=== PATIENT | male | born 1990 | race Caucasian/White ===

== ENCOUNTER 2023-10-18 10:33 | Emergency (ER) | payer MEDICAID, SELFPAY ==
[2023-10-18] VITALS (7 sets, daily range): BP systolic 138–187; BP diastolic 91–117; PULSE 83–127; RESP 16–22; TEMP 35.7–36.8; O2SAT 97–99; BMI 33.0
--- NOTE | 2023-10-18 10:47 | ECG_ITS ---
Test Reason : TACHY Blood Pressure : / mmHG Vent. Rate : 094 BPM Atrial Rate : 094 BPM P-R Int : 146 ms QRS Dur : 084 ms QT Int : 376 ms P-R-T Axes : 044 066 026 degrees QTc Int : 470 ms Normal sinus rhythm Normal ECG When compared with ECG of 14-MAR-2011 14:42, QT has lengthened Referred By: Angie Guerra Electronically Signed By:BRENDA WARE
[2023-10-18] MEDS: Ondansetron ODT 4 MG TAB.RAPDIS TRANSLINGU ×2 (11:00→14:57)
--- NOTE | 2023-10-18 11:01 | ED_ITS ---
HPI - General Adult General Chief complaint: ETOH/Substance Use Stated complaint: withdrawls Time Seen by Provider: 10/18/23 10:45 Source: patient Mode of arrival: ambulatory History of Present Illness HPI narrative: 33-year-old male who reports using 2 bundles fentanyl a day, he snorts the medications, he has been in a detox program proximally 1-1/2 years ago, states that he last used 2 days ago. He denies any alcohol use but does smoke cigarettes and occasionally cannabis. Patient states that he feels like he may be withdrawing and has complaints of nausea as well as feelings of hot/cold, dry heaving last night and having shakes . He has not interested in an inpatient detox system but is open to further discussing a program through [facility] for [place]. Related Data Allergies Allergy/AdvReac Type Severity Reaction Status Date / Time bupropion [From WELLBUTRIN] Allergy Unknown anxiety Unverified 06/15/20 16:08 pollen Allergy Unknown Uncoded 02/28/14 00:00 Review of Systems 2 Review of Systems: Pertinent positives and negatives as stated in HPI PMFSH Past Medical History Source: nursing notes reviewed Onset Date is defined in the Problem List Problems that require an onset date and time if occurred within 24 hrs of arrival to the ED Aortic Dissection and Rupture; Neurologic impairment; Cardiopulmonary Arrest; Endotracheal Intubation; Insertion or Replacement of Mechanical Circulatory Assist Device Social History Social History Use of substances other than those prescribed or required for medical reasons: Yes Substance Use Type: Heroin Substance Use Frequency: Recent Binge Advance Directives: No Advance Directives Information Provided: No Physical Exam ED Vital Signs: Vital Signs - 24 hr 10/18/23 10:37 10/18/23 10:51 10/18/23 12:00 Temperature 96.3 F L Pulse Rate 127 H 114 H 93 Respiratory Rate 17 22 H 16 Blood Pressure 169/117 H 187/101 H 157/91 H Pulse Oximetry 97 99 98 Oxygen Delivery Method Room Air Room Air 10/18/23 14:55 10/18/23 15:43 Temperature 98.3 F Pulse Rate 89 83 Respiratory Rate 16 16 Blood Pressure 145/99 H 138/103 H Pulse Oximetry 97 97 Oxygen Delivery Method Room Air Room Air BMI result Body Mass Index 33.0 VITAL SIGNS: Reviewed. GENERAL: Well developed, well nourished, in no acute distress. HEAD: Normocephalic/atraumatic EYES: PERRLA, EOMI EARS: Ext canals without abnormality NOSE: Nares patent bilateral OROPHARYNX: no oral lesions noted, posterior pharynx clear NECK: Supple, no adenopathy LUNGS: Normal breath sounds. No adventitious sounds or accessory muscle use. SpO2<97> CARDIOVASCULAR: Regular rate and rhythm without noted murmurs ABDOMEN: Soft, non-tender, non-distended with bowel sounds. MUSCULOSKELETAL: No tenderness, deformities, or effusions noted on gross inspection. EXTREMITIES: No cyanosis, clubbing or edema. SKIN: Inspection of the skin reveals no rashes NEUROLOGIC: Alert and oriented x 4. Strength and sensation to light touch were grossly intact x 4. COWS: 14 Medications Administered Discontinued Medications Generic Name Dose Route Start Last Admin Trade Name Freq PRN Reason Stop Dose Admin Buprenorphine/Naloxone 2 film 10/18/23 13:40 10/18/23 13:55 Buprenorphine/Naloxone 8/2 Mg Film SUBLINGUAL 10/18/23 13:41 2 film ONCE ONE Administration Buprenorphine/Naloxone 1 film 10/18/23 14:46 10/18/23 14:57 Buprenorphine/Naloxone 8/2 Mg Film SUBLINGUAL 10/18/23 14:47 1 film ONCE ONE Administration Clonidine HCl 0.1 mg 10/18/23 11:08 10/18/23 11:20 Clonidine Hcl 0.1 Mg Tablet PO 10/18/23 11:09 0.1 mg ONCE ONE Administration Protocol Hydroxyzine HCl 25 mg 10/18/23 14:47 10/18/23 14:57 Hydroxyzine Hcl 25 Mg Tablet PO 10/18/23 14:48 25 mg ONCE ONE Administration Ondansetron HCl 4 mg 10/18/23 10:55 10/18/23 11:00 Ondansetron Odt 4 Mg Tab.Rapdis TRANSLINGU 10/18/23 10:56 4 mg ONCE ONE Administration Ondansetron HCl 4 mg 10/18/23 14:46 10/18/23 14:57 Ondansetron Odt 4 Mg Tab.Rapdis TRANSLINGU 10/18/23 14:47 4 mg ONCE ONE Administration Tizanidine HCl 4 mg 10/18/23 11:08 10/18/23 11:21 Tizanidine Hcl 4 Mg Tablet PO 10/18/23 11:09 4 mg ONCE ONE Administration Medical Decision Making Medical Decision Making [facility] Narrative: 33-year-old male with history and clinical presentation, DDX: Opiate withdrawal, will evaluate fully prior to starting any medications, VELASQUEZ eval I reviewed all investigations and hematologic indices are negative for leukocytosis and there is no anemia or thrombocytopenia. Chemistry indices do not demonstrate an GONZALO neither is there any noted electrolyte or liver enzyme derangements. Ethanol is undetectable however UDS is positive for fentanyl/cocaine/marijuana. Somewhat concerning for proceeding with Suboxone. Patient was provided with clonidine, Zanaflex, Zofran. 1341: VELASQUEZ evaluation in coordination with Valentina Bruno is for 16mg suboxone at this time and then re-eval and likely discharge with script and follow up at the comprehensive program here at [facility]. 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 Patient feeling better on re-evaluation after the last dose Suboxone and is otherwise discharged and understands that he will present to the [facility] and a prescription for remaining Suboxone has been sent to the pharmacy. Differential Diagnosis Differential Diagnoses: The differential diagnosis associated with the presentation includes Please see the discussion above Admission/Observation Consideration of admission/observation: Escalation of care including admission/observation considered Please see the discussion above Consult Healthcare Provider Management of the patient was discussed with: Elevated Guard Please see the discussion above Lab Data MDM Lab Attestation statement: I reviewed the patient's lab results. Please see the discussion above 10/18/23 11:03 10/18/23 11:03 Labs: Lab Results 10/18/23 10/18/23 Range/Units 11:03 12:10 WBC 10.3 (4.8-10.8) X10*3/uL RBC 5.56 (4.60-5.80) X10*6/uL Hgb 16.4 (14.0-18.0) g/dl Hct 48.5 (42.0-52.0) % MCV 87.2 (80.0-98.0) fL MCH 29.5 (27.0-33.0) pg MCHC 33.8 (31.0-36.0) g/dl RDW 12.9 (11.0-16.0) % Plt Count 325 (160-400) X10*3/uL MPV 8.8 L (9.4-12.4) fL Immature Gran % (Auto) 0.4 (0.0-0.4) % Neut % (Auto) 80.5 H (45-73) % Lymph % (Auto) 12.8 L (20-40) % [place] % (Auto) 5.4 (2-11) % Eos % (Auto) 0.3 (0-4) % Baso % (Auto) 0.6 (0-2) % Lymph # (Auto) 1.3 (1.2-4.9) X10*3/uL [place] # (Auto) 0.6 (0.1-1.2) X10*3/uL Eos # (Auto) 0.0 (0.0-0.4) X10*3/uL Baso # (Auto) 0.1 (0.0-0.2) X10*3/uL Abs Immat Gran (auto) 0.04 H (0.00-0.03) X10*3/uL Absolute Neuts (auto) 8.3 (2.0-8.3) x10*3/uL Absolute Nucleated RBC 0.000 (0.0-0.012) X10*3/uL Nucleated RBC % (auto) 0.0 (0.0-0.2) /100WBC Sodium 140 (135-145) mmol/L Potassium 4.1 (3.3-5.1) mmol/L Chloride 104 (96-108) mmol/L Carbon Dioxide 25 (22-29) mmol/L Anion Gap 15 (12-20) BUN 6 L (9-16) mg/dL Creatinine 0.97 (0.5-1.4) mg/dL Estim Creat Clear Calc 124.7 Estimated GFR > 60 Random Glucose 128 H (60-115) mg/dL Calcium 9.9 (8.4-10.2) mg/dL Total Bilirubin 0.4 (0.0-1.0) mg/dL AST 14 (5-37) U/L ALT 10 (0-40) U/L Alkaline Phosphatase 106 (39-117) U/L Total Protein 8.2 H (6.5-8.0) g/dL Albumin 4.8 (3.5-5.0) g/dL Urine Opiates Screen Not Detected (Not Detect) Urine Fentanyl Screen POSITIVE H (Not Detect) Ur Barbiturates Screen Not Detected (Not Detect) Ur Phencyclidine Scrn Not Detected (Not Detect) Ur Amphetamines Screen Not Detected (Not Detect) U Benzodiazepines Scrn Not Detected (Not Detect) Urine Cocaine Screen POSITIVE H (Not Detect) U Marijuana (THC) Screen POSITIVE H (Not Detect) Ethyl Alcohol < 10 mg/dL Independent Interpretation I performed an independent interpretation of an: EKG Interpretation: Normal sinus rhythm, HR-94, no STEMI, OR/QRS/QTC is within normal limits. Chronic Conditions Patient?s care impacted by: Other Polysubstance use disorder Social Determinants Patient?s care significantly limited by Social Determinants of Health including: Alcoholism and drug addiction in family Critical Care Time Critical Care Time Critical Care Time: Yes Total Critical Care Time: 60 Attestation: I personally attest to this time spent taking care of the patient. Discharge Plan Discharge Clinical Impression: Polysubstance use disorder Patient Disposition: Home, Self-Care Instructions: Polysubstance Abuse (ED) Additional Instructions: 1. You understand that you will be presenting to the [facility]. 2. You have been provided with a prescription which has been sent to your pharmacy for Suboxone. Return to the ER for any worsening symptoms. Referrals: Valentina Bruno CNP [Nurse Practitioner] -
[2023-10-18 11:06] LABS: MANUAL DIFF FLAG NO
[2023-10-18 11:11] LABS: Basophils Absolute Auto 0.1 X10*3/uL (0.0-0.2); Basophils Percent Auto 0.6 % (0-2); Eosinophils Percent Auto 0.3 % (0-4); Hematocrit 48.5 % (42.0-52.0); Hemoglobin 16.4 g/dl (14.0-18.0); Imm Gran Abs Auto 0.04 X10*3/uL (0.00-0.03); Imm Gran Pct Auto 0.4 % (0.0-0.4); Lymphocytes Absolute Auto 1.3 X10*3/uL (1.2-4.9); Lymphocytes Percent Auto 12.8 % (20-40); Mean Corpuscular HGB Conc 33.8 g/dl (31.0-36.0); Mean Corpuscular Hemoglobin 29.5 pg (27.0-33.0); Mean Corpuscular Volume 87.2 fL (80.0-98.0); Mean Platelet Volume 8.8 fL (9.4-12.4); Monocytes Absolute Auto 0.6 X10*3/uL (0.1-1.2); Monocytes Percent Auto 5.4 % (2-11); Neutrophils Absolute Auto 8.3 x10*3/uL (2.0-8.3); Neutrophils Percent Auto 80.5 % (45-73); Platelet Count 325 X10*3/uL (160-400); Red Blood Count 5.56 X10*6/uL (4.60-5.80); Red Cell Distribution Width 12.9 % (11.0-16.0); White Blood Count 10.3 X10*3/uL (4.8-10.8)
[2023-10-18] MEDS: cloNIDine HCL 0.1 MG TABLET PO (11:20)
[2023-10-18] MEDS: TiZANidine HCL 4 MG TABLET PO (11:21)
[2023-10-18 11:22] LABS: Alanine Aminotransferase 10 U/L (0-40); Albumin Level 4.8 g/dL (3.5-5.0); Alkaline Phosphatase 106 U/L (39-117); Anion Gap 15 (12-20); Aspartate Amino Transferase 14 U/L (5-37); Bilirubin Total 0.4 mg/dL (0.0-1.0); Blood Urea Nitrogen 6 mg/dL (9-16); Calcium 9.9 mg/dL (8.4-10.2); Carbon Dioxide 25 mmol/L (22-29); Chloride 104 mmol/L (96-108); Creatinine Clr Calc Pharmacy 124.7; Estimated Glomerular Filt Rate > 60; Ethanol < 10 mg/dL; Glucose Random 128 mg/dL (60-115); Potassium 4.1 mmol/L (3.3-5.1); Sodium 140 mmol/L (135-145); Total Protein 8.2 g/dL (6.5-8.0)
[2023-10-18 12:23] LABS: Amphetamine Screen Urine Not Detected (Not Detect); Barbiturates, Urine Not Detected (Not Detect); Benzodiazepines Screen Urine Not Detected (Not Detect); Cannabinoid Screen Urine POSITIVE (Not Detect); Cocaine Screen Urine POSITIVE (Not Detect); Fentanyl, urine POSITIVE (Not Detect); Opiate Screen Urine Not Detected (Not Detect); Phencyclidine Screen Urine Not Detected (Not Detect)
[2023-10-18] MEDS: Buprenorphine/Naloxone 8/2 mg FILM 2 FILM SUBLINGUAL (13:55)
--- NOTE | 2023-10-18 14:45 | PC.NURSE ---
patient medicated per mar with suboxone, at approx 1430 patient had episode of vomiting. states he feels worse and has increasing nausea
[2023-10-18] MEDS: Buprenorphine/Naloxone 8/2 mg FILM 1 FILM SUBLINGUAL (14:57)
[2023-10-18] MEDS: hydrOXYzine HCL 25 MG TABLET PO (14:57)
--- NOTE | 2023-10-18 15:32 | MHC.RECOVRN ---
Met with pt in ED22 after pt presented to the ED with opioid withdrawal. At 1330, pt laying in bed, restless, stomach flip flopping , dilated pupils, rhinorrhea, tearing, feeling hot/cold, denies loose stool. Pt reports ususally using 1-2 bundles heroin/fentanyl, IN, daily. Last use was 10/16, 3 bags. Pt reports hx Percocet use which lead to heroin around 2019. Pt reports hx Suboxone, had been in recovery at one point for 1 year. Discussed MOUD options, pt interested in Suboxone initiation. Educated pt on precipitated withdrawal. Pt denies questions or concerns, agreeable to Suboxone induction. Pt received 16 mg Suboxone at 1355. At approx 1430, pt began exhibiting increased withdrawal symptoms including vomiting and loose stool. Pt received additional 8 mg Suboxone at 1457. Met with pt at 1520, pt reports feeling better. Pt reports stomach cramps are subsiding, diaphoresis is lessening. Plan for pt to present to [facility] as walk in on Friday. Suboxone rx to be sent by Valentina Bruno APRN. Pt denies questions or concerns at this time. Pt was provided with written resources as well as t/w contact information if needed. Discussed with ED provider, RN, as well as Valentina Bruno APRN.
== END 2023-10-18 16:10 | disposition home or self-care (01) ==
PROVIDERS: Emergency Provider Student in an Organized Health Care Education/Training Program
DX: F19.10 Other psychoactive substance abuse, uncomplicated (principal); R11.2 Nausea with vomiting, unspecified; F17.210 Nicotine dependence, cigarettes, uncomplicated; F41.9 Anxiety disorder, unspecified; Z79.899 Other long term (current) drug therapy
CPT/HCPCS: 36415; 80053; 80307; 85025; 93005; 99285

== ENCOUNTER → 2023-10-18 10:47 | Outpatient (BNV) | payer MEDICAID, SELFPAY | PROVIDERS: Emergency Provider Student in an Organized Health Care Education/Training Program; Visit Provider Internal Medicine | DX: R00.0 Tachycardia, unspecified (principal); I45.81 Long QT syndrome | CPT/HCPCS: 93010 ==

== ENCOUNTER 2023-10-18 19:33 | Emergency (ER) | payer MEDICAID, SELFPAY ==
--- NOTE | ~2023-10-18 | XR_ITS ---
EXAMINATION: XR CHEST CLINICAL INFORMATION: Elevated white blood cell count, rule out infection COMPARISON: None available. TECHNIQUE: Frontal view of the chest was obtained. FINDINGS: No significant abnormality is noted involving the heart, lungs, mediastinum, bony thorax or soft tissues. XR/XR chest 1V IMPRESSION: Unremarkable examination.
[2023-10-18 19:37] VITALS: BP 158/114; PULSE 97; RESP 16; TEMP 36.9; O2SAT 97; BMI 32.1
--- NOTE | 2023-10-18 20:18 | ED.GENADULT ---
HPI - General Adult General Chief complaint: General Medical Stated complaint: withdrawals Time Seen by Provider: 10/18/23 20:05 Source: patient Mode of arrival: ambulatory Limitations: no limitations History of Present Illness HPI narrative: 33-year-old male with a past medical history of polysubstance abuse, using 2 bundles fentanyl daily, presents emergency department with concerns for fentanyl withdrawal. He reports he last used 2 days ago and states that he was evaluated earlier today in this emergency department and given Suboxone for management of withdrawal symptoms. He states his symptoms have since worsened with increased nausea, generalized body aches, chills, headache, and feeling of ?shakes?. He states that he snorts the drug and denies any history of IV drug use. He reports he and he smokes cigarettes and occasionally marijuana but denies any EtOH use. Here in the emergency department he denies any shortness of breath, chest pain, fevers, abdominal pain, vision changes, dizziness, or change in gait in range of motion. Patient reports that he is interested in discussing detox options at this time Pertinent positives and negatives discussed in HPI Related Data Previous Rx's Medication Instructions Recorded buprenorphine 8 mg-naloxone 2 mg 1 film sublingual BID #4 ea 10/18/23 sublingual film (Suboxone) ondansetron 4 mg disintegrating 4 mg PO Q6H PRN nausea and 10/18/23 tablet vomiting #20 tabs tizanidine 2 mg capsule 2 mg PO TID PRN muscle spasticity 10/18/23 #10 caps Allergies Allergy/AdvReac Type Severity Reaction Status Date / Time bupropion [From WELLBUTRIN] Allergy Unknown anxiety Unverified 06/15/20 16:08 pollen Allergy Unknown Uncoded 02/28/14 00:00 Review of Systems Review of Systems: Yes all other systems are reviewed and are negative [facility] Social History Social History Smoked in Last 30 Days: Yes Use of substances other than those prescribed or required for medical reasons: Yes Substance Use Type: Opiates Substance Use Frequency: Chronic Longstanding Last Used Substance: Days (ago) Any prior treatment program specific to substance use: Yes Advance Directives: No Advance Directives Information Provided: No Physical Exam ED Vital Signs: Vital Signs - 24 hr 10/18/23 19:37 10/18/23 20:51 10/18/23 22:18 Temperature 98.5 F 98.5 F Pulse Rate 97 91 65 Respiratory Rate 16 14 14 Blood Pressure 158/114 H 152/102 H 150/93 H Pulse Oximetry 97 97 97 Oxygen Delivery Method Room Air Room Air Room Air BMI result Body Mass Index 32.1 Nursing notes and vital signs reviewed. GENERAL APPEARANCE: A&0 x 4, generally well appearing, no acute distress HENMT: Normal to inspection, atraumatic, face symmetrical. Normal external ears, nose, and oropharynx clear. EYE: PERRLA, EOM intact, structures appear normal NECK: Supple without lymphadenopathy. No stiffness or restricted ROM. CHEST: Normal to inspection HEART: Normal rate and regular rhythm, normal S1/S2, no M/R/G LUNGS: LS CTA, moving air well. Able to speak in complete sentences. No crackles, wheezes, or rhonchi auscultated ABDOMEN: Soft, nontender, nondistended. Normal bowel sounds noted BACK: No CVAT, no obvious deformity EXTREMITIES: Moving all extremities without difficulty. No cyanosis, clubbing, or edema. Normal capillary refill. NEUROLOGICAL: Alert and oriented, moving all 4 extremities with equal strength. CN not formally tested but appearing grossly intact. Observed to ambulate with normal gait. Cognition normal SKIN: Warm and dry without any lesions, rash, or visible sores PSYCH: Cooperative, normal affect, normal thought process COWS 11 @2019 Course Reevaluation(s) Reevaluation #1: Pt actively vomiting. Reglan, Haldol, and IVF bolus ordered. UA and CXR ordered to assess for cause of elevated WBCs Time: 21:40 Medications Administered Discontinued Medications Generic Name Dose Route Start Last Admin Trade Name Braedenq PRN Reason Stop Dose Admin Clonidine HCl 0.1 mg 10/18/23 20:31 10/18/23 21:01 Clonidine Hcl 0.1 Mg Tablet PO 10/18/23 20:32 0.1 mg ONCE ONE Administration Protocol Haloperidol Lactate 1 mg 10/18/23 21:42 10/18/23 22:12 Haloperidol Lactate 5 Mg/Ml Vial IVPUSH 10/18/23 21:43 1 mg ONCE ONE Administration Sodium Chloride 1,000 mls @ 999 mls/hr 10/18/23 21:45 10/18/23 23:46 Ns IV 10/18/23 22:45 Infused .Q1H1M [place] Infusion Metoclopramide HCl 10 mg 10/18/23 21:42 10/18/23 22:12 Metoclopramide Hcl 10 Mg/2 Ml Vial IVPUSH 10/18/23 21:43 10 mg ONCE ONE Administration Ondansetron HCl 8 mg 10/18/23 20:20 10/18/23 21:01 Ondansetron Odt 8 Mg Tab.Rapdis TRANSLINGU 10/18/23 20:21 8 mg ONCE ONE Administration Tizanidine HCl 4 mg 10/18/23 20:31 10/18/23 21:01 Tizanidine Hcl 4 Mg Tablet PO 10/18/23 20:32 4 mg ONCE ONE Administration Medical Decision Making Medical Decision Making MDM Narrative: Old records reviewed and patient assessed in the emergency department with no acute distress or evidence of toxicity present. Zofran, Reglan, Haldol, tizanidine, and clonidine ordered for management of acute withdrawal symptoms with good relief per patient. Patient monitored here in this emergency department with vital signs stable. Patient educated to follow-up with [facility] with contact information provided. Patient educated to continue previously prescribed Suboxone for further cessation fentanyl. Tizanidine and Zofran since patient's preferred pharmacy for further management of withdrawal symptoms. Patient is safe for discharge at this time with plan for [id number] Tylenol and/or NSAID such as ibuprofen or naproxen for fever/discomfort with dosing as per packaging. HPI, PE, diagnostics, and plan discussed with patient and family with no unanswered questions at this time. Strict return precautions given to return to the emergency department with new, worsening, or concerning emergent symptoms. Recommended to follow-up with there primary care provider in 24-48 hours for further treatment and management. Differential Diagnosis Differential Diagnoses: The differential diagnosis associated with the presentation includes But not limited to opioid withdrawal, influenza, sepsis, ETOH withdrawal, ACS, pneumonia, CVA Lab Data 10/18/23 21:00 10/18/23 21:00 Labs: Lab Results 10/18/23 10/18/23 Range/Units 21:00 21:07 WBC 15.0 H (4.8-10.8) X10*3/uL RBC 5.58 (4.60-5.80) X10*6/uL Hgb 16.6 (14.0-18.0) g/dl Hct 47.4 (42.0-52.0) % MCV 84.9 (80.0-98.0) fL MCH 29.7 (27.0-33.0) pg MCHC 35.0 (31.0-36.0) g/dl RDW 12.9 (11.0-16.0) % Plt Count 358 (160-400) X10*3/uL MPV 8.8 L (9.4-12.4) fL Immature Gran % (Auto) 0.4 (0.0-0.4) % Neut % (Auto) 88.4 H (45-73) % Lymph % (Auto) 7.5 L (20-40) % [place] % (Auto) 3.1 (2-11) % Eos % (Auto) 0.3 (0-4) % Baso % (Auto) 0.3 (0-2) % Lymph # (Auto) 1.1 L (1.2-4.9) X10*3/uL [place] # (Auto) 0.5 (0.1-1.2) X10*3/uL Eos # (Auto) 0.0 (0.0-0.4) X10*3/uL Baso # (Auto) 0.1 (0.0-0.2) X10*3/uL Abs Immat Gran (auto) 0.06 H (0.00-0.03) X10*3/uL Absolute Neuts (auto) 13.3 H (2.0-8.3) x10*3/uL Absolute Nucleated RBC 0.000 (0.0-0.012) X10*3/uL Nucleated RBC % (auto) 0.0 (0.0-0.2) /100WBC Sodium 139 (135-145) mmol/L Potassium 4.3 (3.3-5.1) mmol/L Chloride 103 (96-108) mmol/L Carbon Dioxide 24 (22-29) mmol/L Anion Gap 16 (12-20) BUN 8 L (9-16) mg/dL Creatinine 0.98 (0.5-1.4) mg/dL Estim Creat Clear Calc 121.8 Estimated GFR > 60 Random Glucose 133 H (60-115) mg/dL Calcium 10.4 H (8.4-10.2) mg/dL Total Bilirubin 0.6 (0.0-1.0) mg/dL AST 14 (5-37) U/L ALT 10 (0-40) U/L Alkaline Phosphatase 107 (39-117) U/L Total Protein 8.1 H (6.5-8.0) g/dL Albumin 4.9 (3.5-5.0) g/dL Urine Color Dark Yellow Urine Appearance Cloudy Urine pH 6.0 (5.0-9.0) Ur Specific [place] 1.025 (1.005-1.025) Urine Protein 100 (2+) H (Neg-Trace) mg/dL Urine Glucose (UA) Negative (Negative) mg/dL Urine Ketones >=160 (Negative) mg/dL Urine Blood Negative (Negative) Urine Nitrite Negative (Negative) Ur Leukocyte Esterase Trace H (Negative) Urine RBC 0-2 (0-2) /HPF Urine WBC 0-5 (0-5) /HPF Ur Squamous Epith Cells 0-2 (0-2) /HPF Urine Bacteria None Seen (None Seen) Hyaline Casts >20 (0-2) /LPF Urine Opiates Screen Not Detected (Not Detect) Urine Fentanyl Screen POSITIVE H (Not Detect) Ur Barbiturates Screen Not Detected (Not Detect) Ur Phencyclidine Scrn Not Detected (Not Detect) Ur Amphetamines Screen Not Detected (Not Detect) U Benzodiazepines Scrn Not Detected (Not Detect) Urine Cocaine Screen POSITIVE H (Not Detect) U Marijuana (THC) Screen POSITIVE H (Not Detect) Discharge Plan Discharge Clinical Impression: Polysubstance use disorder Patient Disposition: Home, Self-Care Instructions: Polysubstance Abuse (ED) Additional Instructions: Please present to: [address], [address] [place] [address] A prescription for Suboxone was sent to your pharmacy earlier today. Please use this prescription as directed and follow up with the [facility] Prescriptions: New ondansetron 4 mg tablet,disintegrating 4 mg PO Q6H PRN (Reason: nausea and vomiting) Qty: 20 0RF tizanidine 2 mg capsule 2 mg PO TID PRN (Reason: muscle spasticity) Qty: 10 0RF No Action buprenorphine-naloxone [Suboxone] 8-2 mg film 1 film sublingual BID Qty: 4 0RF Referrals: [facility] [Provider Group] [facility]] [facility]] Valentina Bruno CNP [Nurse Practitioner] - Print Language: Bulgarian
[2023-10-18 20:51] VITALS: BP 152/102; PULSE 91; RESP 14; O2SAT 97
[2023-10-18] MEDS: Ondansetron ODT 8 MG TAB.RAPDIS TRANSLINGU (21:01)
[2023-10-18] MEDS: TiZANidine HCL 4 MG TABLET PO (21:01)
[2023-10-18] MEDS: cloNIDine HCL 0.1 MG TABLET PO (21:01)
[2023-10-18 21:07] LABS: MANUAL DIFF FLAG NO
[2023-10-18 21:08] LABS: Basophils Absolute Auto 0.1 X10*3/uL (0.0-0.2); Basophils Percent Auto 0.3 % (0-2); Eosinophils Percent Auto 0.3 % (0-4); Hematocrit 47.4 % (42.0-52.0); Hemoglobin 16.6 g/dl (14.0-18.0); Imm Gran Abs Auto 0.06 X10*3/uL (0.00-0.03); Imm Gran Pct Auto 0.4 % (0.0-0.4); Lymphocytes Absolute Auto 1.1 X10*3/uL (1.2-4.9); Lymphocytes Percent Auto 7.5 % (20-40); Mean Corpuscular Hemoglobin 29.7 pg (27.0-33.0); Mean Corpuscular Volume 84.9 fL (80.0-98.0); Mean Platelet Volume 8.8 fL (9.4-12.4); Monocytes Absolute Auto 0.5 X10*3/uL (0.1-1.2); Monocytes Percent Auto 3.1 % (2-11); Neutrophils Absolute Auto 13.3 x10*3/uL (2.0-8.3); Neutrophils Percent Auto 88.4 % (45-73); Platelet Count 358 X10*3/uL (160-400); Red Blood Count 5.58 X10*6/uL (4.60-5.80); Red Cell Distribution Width 12.9 % (11.0-16.0)
[2023-10-18 21:19] LABS: Amphetamine Screen Urine Not Detected (Not Detect); Barbiturates, Urine Not Detected (Not Detect); Benzodiazepines Screen Urine Not Detected (Not Detect); Cannabinoid Screen Urine POSITIVE (Not Detect); Cocaine Screen Urine POSITIVE (Not Detect); Fentanyl, urine POSITIVE (Not Detect); Opiate Screen Urine Not Detected (Not Detect); Phencyclidine Screen Urine Not Detected (Not Detect)
[2023-10-18 21:25] LABS: Alanine Aminotransferase 10 U/L (0-40); Albumin Level 4.9 g/dL (3.5-5.0); Alkaline Phosphatase 107 U/L (39-117); Anion Gap 16 (12-20); Aspartate Amino Transferase 14 U/L (5-37); Bilirubin Total 0.6 mg/dL (0.0-1.0); Blood Urea Nitrogen 8 mg/dL (9-16); Calcium 10.4 mg/dL (8.4-10.2); Carbon Dioxide 24 mmol/L (22-29); Chloride 103 mmol/L (96-108); Creatinine Clr Calc Pharmacy 121.8; Estimated Glomerular Filt Rate > 60; Glucose Random 133 mg/dL (60-115); Potassium 4.3 mmol/L (3.3-5.1); Sodium 139 mmol/L (135-145); Total Protein 8.1 g/dL (6.5-8.0)
[2023-10-18 21:49] LABS: Appearance Urine Cloudy; Color Urine Dark Yellow; Glucose Urine UA Negative (Negative); Leukocyte Esterase Urine Trace (Negative); Nitrite Urine Negative (Negative); Specific Gravity - Urine 1.025 (1.005-1.025); UMIC TRIGGER UA YES; Urine Blood Negative (Negative); Urine Ketones >=160 mg/dL (Negative); Urine Protein 100 (2+) mg/dL (Neg-Trace)
[2023-10-18 22:00] LABS: Bacteria Urine None Seen (None Seen); Hyaline Casts Urine >20 /LPF (0-2); RBC Urine 0-2 /HPF (0-2); Squamous Epithelial Cell Urine 0-2 /HPF (0-2); WBC Urine 0-5 /HPF (0-5)
[2023-10-18] MEDS: Metoclopramide HCl 10 MG/2 ML VIAL IVPUSH (22:12)
[2023-10-18] MEDS: Haloperidol Lactate 5 MG/ML VIAL 1 MG IVPUSH (22:12)
[2023-10-18] MEDS: 0.9 % Sodium Chloride 1,000 ML 999 ML IV (22:12)
[2023-10-18 22:18] VITALS: BP 150/93; PULSE 65; RESP 14; TEMP 36.9; O2SAT 97
[2023-10-19 00:17] VITALS: BP 162/98; PULSE 85; RESP 14; TEMP 37; O2SAT 96
== END 2023-10-19 00:19 | disposition home or self-care (01) ==
PROVIDERS: Nurse Practitioner Family; Emergency Provider Emergency Medicine Emergency Medical Services
DX: F19.10 Other psychoactive substance abuse, uncomplicated (principal); D72.829 Elevated white blood cell count, unspecified; Z79.899 Other long term (current) drug therapy
CPT/HCPCS: 36415; 71045; 80053; 80307; 81001; 85025; 96361; 96374; 96375; 99284; J1630; J2765

== ENCOUNTER 2023-10-20 11:42 | Outpatient (AMB) | payer MEDICAID, SELFPAY ==
[2023-10-20 11:49] VITALS: BP 140/88; PULSE 100; O2SAT 96
--- NOTE | 2023-10-20 11:49 | A.OFFVISCC_ITS ---
Intake Vital Signs 10/20/23 11:49 BP 140/88 H Blood Pressure Location Lt radial Position Sitting Pulse 100 Pulse Source Pulse Oximeter Pulse Oximetry (%) 96 Oxygen Delivery Method Room Air Intake Visit Reasons: MAT Intake/Walk in Intake Note: the patient presents for a walk in/ mat intake Mononitrotoluene Operator Required: No Allergies bupropion [From WELLBUTRIN] Allergy (Unknown, Unverified 06/15/20 16:08) anxiety pollen Allergy (Unknown, Uncoded 02/28/14 00:00) Do you need a note to return to daycare/school/sports/work: No HPI MAT Intake/Walk in HPI Details Patient presents to establish care for OUD He was recently seen in the ED where the addiction team met with him and started him on suboxone Currently he endorses poor appetite and PO intake, yawning, back pain, and sweating. He reports he had to take his first 8mg of the day film in the middle of the night with good effect. 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 in assistant track coach and referral for counseling He is declining resources for AA meetings at this time He reports his substance use began with Perc 30's and progressed quickly to heroin because it was cheaper He quit cold turkey on his own in 2013, was able to maintain sobriety for 6 years and relapsed when the pandemic began He reports substance use was intranasally only, denies hx of overdose, has narcan at home He uses 1-2 bundles daily, and last use was 10/16 evening He has historically used: cocaine ( very occasionally , marijuana, and tobacco (20 pack years) He has never used or shared needles Has previously been to detox at [place], has not been to any other detox or outpatient program Reports a diagnosis of: ADHD, anxiety, and depression none of which he is currently being treated for He has no current providers- is interested in [facility] referral He has never been psychiatrically hospitalized No current or hx of SI/HI, self injurious thoughts or behaviours Reports NKA He has no home medications Denies any relevant PMHx No pertinent legal hx PFSH Social History Substance Use Type: Opiates Review of Systems Const Reports excessive sweating and Reports poor appetite GI Reports no additional complaints Musc Reports back pain Psych Reports no additional complaints Endo Reports excessive sweating Physical Exam Vital Signs: Last Vital Signs Pulse 100 10/20/23 11:49 BP 140/88 H 10/20/23 11:49 Pulse Ox 96 10/20/23 11:49 Oxygen Delivery Method Room Air 10/20/23 11:49 Const General: cooperative and no acute distress Resp Effort & Inspection: normal respiratory effort and able to speak in complete sentences Psych Appearance: disheveled Mental Status: mental status grossly normal Speech and movement: Normal speech and movement present Affect: Blunted affect present Attitude: cooperative Results AMB 14 Panel Urine Drug Screen Urine Marijuana (THC) Positive Last Edit by Radha Kenny NP on 10/20/23 13:03 Urine Cocaine Negative Last Edit by Radha Kenny NP on 10/20/23 13:03 Urine Morphine Last Edit by Radha Kenny NP on 10/20/23 13:03 Urine Methamphetamine Last Edit by Radha Kenny NP on 10/20/23 13:03 Urine Amphetamine Last Edit by Radha Kenny NP on 10/20/23 13:03 Urine Benzodiazepine Last Edit by Radha Kenny NP on 10/20/23 13:03 Urine Barbiturates Last Edit by Radha Kenny NP on 10/20/23 13:03 Urine Methadone Negative Last Edit by Radha Kenny NP on 10/20/23 13:03 Urine Buprenorphine Positive Last Edit by Radha Kenny NP on 10/20/23 13 :03 Urine Tricyclic Antidepressant Negative Last Edit by Radha Kenny NP on 10/20/23 13:03 Urine MDMA Negative Last Edit by Radha Kenny NP on 10/20/23 13:03 Urine Oxycodone Negative Last Edit by Radha Kenny NP on 10/20/23 13:03 Urine Phencyclidine Negative Last Edit by Radha Kenny NP on 10/20/23 13 :03 Urine Propoxyphene Negative Last Edit by Radha Kenny NP on 10/20/23 13: 03 Assessment & Plan Assessment & Plan (1) Opioid use disorder: Code(s): F190 - Opioid use, unspecified, uncomplicated Plan: -Added 4mg dose midday to help address withdrawal sx, continue 8mg bid -Discussed recovery supports -Offered Narcan for pt to take home, he is declining at this time- already has some at home -Referral placed to [facility] -Follow up with clinic in 1 week Orders: Orders AMB 14 Panel Urine Drug Screen Today - Opioid use, unspecified, uncomplicated Referrals Counseling Referral - Opioid use, unspecified, uncomplicated Medications: New buprenorphine-naloxone 4-[address] 1 strip/tab under (each) side of tongue 1 film buccal Q24H 7 ea 0RF Refilled buprenorphine-naloxone 8-2 mg (Suboxone) 1 film sublingual BID 14 ea 0RF Telehealth Telehealth Location of provider rendering services: practice address Coding Level of Care Code New Pt Level 4 (36593) Diagnoses Opioid use disorder
== END 2023-10-20 12:56 | disposition home or self-care (01) ==
PROVIDERS: Visit Provider Nurse Practitioner Family
DX: F11.90 Opioid use, unspecified, uncomplicated (principal)
CPT/HCPCS: 99204

== ENCOUNTER → 2023-10-20 11:42 | Outpatient (BNVA) | payer MEDICAID, SELFPAY | PROVIDERS: Visit Provider Nurse Practitioner Family | DX: F11.20 Opioid dependence, uncomplicated (principal) | CPT/HCPCS: 80305; 99212 ==

== ENCOUNTER 2023-10-27 13:30 | Outpatient (AMB) | payer MEDICAID, SELFPAY ==
--- NOTE | 2023-10-27 13:32 | A.OFFVISCC_ITS ---
Intake Vital Signs 10/27/23 13:37 BP 130/86 Blood Pressure Location Lt radial Position Sitting Pulse 99 Pulse Source Pulse Oximeter Pulse Oximetry (%) 97 Oxygen Delivery Method Room Air Intake Visit Reasons: MAT Follow up Intake Note: the patient presents for a mat visit Dining Room Hostess Required: No Allergies bupropion [From WELLBUTRIN] Allergy (Unknown, Unverified 06/15/20 16:08) anxiety pollen Allergy (Unknown, Uncoded 02/28/14 00:00) Do you need a note to return to daycare/school/sports/work: No HPI MAT Follow up HPI Details Pt presents to the clinic for OUD treatment and follow up He denies any substance use in the past week Reports his week went well, he felt unwell until 3 days ago per his report He has been taking the 8mg BID with good effect, had only needed the 4mg films once He has done some research on the Sublocade injection, and is interested in trying it out He denies any other concerns today PFSH Social History Substance Use Type: Opiates Review of Systems Const Reports as per HPI Physical Exam Vital Signs: Last Vital Signs Pulse 99 10/27/23 13:37 BP 130/86 10/27/23 13:37 Pulse Ox 97 10/27/23 13:37 Oxygen Delivery Method Room Air 10/27/23 13:37 Const General: cooperative and no acute distress Resp Effort & Inspection: normal respiratory effort and able to speak in complete sentences Psych Appearance: grossly normal Mental Status: mental status grossly normal Speech and movement: Normal speech and movement present Affect: Blunted affect present Assessment & Plan Assessment & Plan (1) Opioid use disorder: Code(s): F11.90 - Opioid use, unspecified, uncomplicated Plan: -Mass pat reviewed -Suboxone films refilled for 1 week- plan to fill a bridge script next week if the injection has not arrived yet -Sublocade education provided -Sublocade ordered -Follow up x 1 week Medications: New buprenorphine ER (Sublocade) 300 mg (1.5 mL) subcut ONCE 1.5 mL 1RF Refilled buprenorphine-naloxone 8-2 mg (Suboxone) 1 film sublingual BID 14 ea 0RF Discontinued buprenorphine-naloxone 4-[address] 1 strip/tab under (each) side of tongue Discontinued Reason: Patient no longer taking 1 film buccal Q24H 7 ea 0RF Coding Level of Care Code Est Pt Level 3 (60037) Diagnoses Opioid use disorder F11.90
[2023-10-27 13:37] VITALS: BP 130/86; PULSE 99; O2SAT 97
== END 2023-10-27 13:53 | disposition home or self-care (01) ==
PROVIDERS: Visit Provider Nurse Practitioner Family
DX: F11.90 Opioid use, unspecified, uncomplicated (principal)
CPT/HCPCS: 99213

== ENCOUNTER → 2023-10-27 13:30 | Outpatient (BNVA) | payer OTHER, SELFPAY | PROVIDERS: Visit Provider Nurse Practitioner Family | DX: F11.20 Opioid dependence, uncomplicated (principal) | CPT/HCPCS: 99212 ==

== ENCOUNTER 2023-11-06 10:38 | Outpatient (AMB) | payer MEDICAID, SELFPAY ==
--- NOTE | 2023-11-06 10:40 | MHC.AM.SUB ---
Intake Vital Signs 11/06/23 10:48 BP 110/70 Blood Pressure Location Lt radial Position Sitting Pulse 116 H Pulse Source Pulse Oximeter Pulse Oximetry (%) 95 Oxygen Delivery Method Room Air Intake Visit Reasons: MAT Follow up Intake Note: the patient presents for a mat visit Aircraft Mechanic Required: No Allergies bupropion [From WELLBUTRIN] Allergy (Unknown, Unverified 06/15/20 16:08) anxiety pollen Allergy (Unknown, Uncoded 02/28/14 00:00) HPI MAT Follow up HPI Details Patient presents today for first sublocade injection He has no concerns for recovery at this time He denies cravings, reports his dose has been appropriate, no withdrawal symptoms, no side effects PFSH Social History Substance Use Type: Opiates Review of Systems Const Reports as per HPI GI Denies constipation Physical Exam Vital Signs: Last Vital Signs Pulse 116 H 11/06/23 10:48 BP 110/70 11/06/23 10:48 Pulse Ox 95 11/06/23 10:48 Oxygen Delivery Method Room Air 11/06/23 10:48 Const General: cooperative and healthy appearing Nutritional Appearance: average body habitus Resp Effort & Inspection: normal respiratory effort Psych Appearance: grossly normal Mental Status: mental status grossly normal Affect: Blunted affect present Attitude: cooperative Thought process: Normal thought process present Office Meds Sublocade 300 mg/1.5 mL solution,extended release subcutaneous syringe Performing Provider: Radha Kenny NP Performing Location: [facility] Administered by: María Kent on 11/06/23 11:14 Dose Route Admin Location Dispensed Lot Number Expiration Date [facility] Government Affairs Researcher 300 mg subcut RLQ 1.5 mL [id number] 10/30/24 [address]-0 [employer]. Comments: Pt tolerated injection well. Educated on signs/symptoms of infection, encouraged to call the [facility] with questions or concerns. Pt verbalizes understanding. Assessment & Plan Assessment & Plan (1) Opioid use disorder: Code(s): F11.90 - Opioid use, unspecified, uncomplicated Plan: -Tolerated injection -Provided with medication education -Educated patient on signs and symptoms of infection and when to seek medical attention -Bridge script sent to pharmacy should pt experience breakthrough withdrawal symptoms -Follow up 4 weeks Orders: Orders AMB Buprenorphine Injection - Patient Supplied Today F11.90 - Opioid use, unspecified, uncomplicated Medications: Refilled buprenorphine-naloxone 8-2 mg (Suboxone) 1 film sublingual BID 10 ea 0RF Coding Level of Care Code Est Pt Level 3 (56201) Diagnoses Opioid use disorder F11.90
[2023-11-06 10:48] VITALS: BP 110/70; PULSE 116; O2SAT 95
== END 2023-11-06 11:32 | disposition home or self-care (01) ==
LOC: HO.HCC 10:39
PROVIDERS: Visit Provider Nurse Practitioner Family
DX: F11.90 Opioid use, unspecified, uncomplicated (principal)
CPT/HCPCS: 99213

== ENCOUNTER → 2023-11-06 10:38 | Outpatient (BNVA) | payer MEDICAID, SELFPAY | PROVIDERS: Visit Provider Nurse Practitioner Family | DX: F11.20 Opioid dependence, uncomplicated (principal) | CPT/HCPCS: 96372; 99212; Q9992 ==

== ENCOUNTER 2023-12-04 12:53 | Outpatient (AMB) | payer MEDICAID, SELFPAY ==
--- NOTE | 2023-12-04 12:59 | AM.OFFVISNUR ---
Intake Vital Signs 12/04/23 13:00 BP 118/78 Blood Pressure Location Lt radial Position Sitting Pulse 86 Pulse Source Pulse Oximeter Pulse Oximetry (%) 96 Oxygen Delivery Method Room Air Intake Visit Reasons: sub inj Intake Note: The patient presents for a sub inj Buckle Coverer Required: No Allergies bupropion [From WELLBUTRIN] Allergy (Unknown, Unverified 06/15/20 16:08) anxiety pollen Allergy (Unknown, Uncoded 02/28/14 00:00) Do you need a note to return to daycare/school/sports/work: No Nursing Note Patient present for 4 week OUD visit and second Sublocade injection. Pt is alert, oriented and cooperative with care. Pt reports that he is doing well since his first injection 4 weeks ago and has had zero cravings and no need for bridge suboxone use. Pt tolerated injection well and had no questions or concerns. Will follow up in office in 4 weeks and call office if any questions or concerns arrise. Office Meds Sublocade 300 mg/1.5 mL solution,extended release subcutaneous syringe Performing Provider: Radha Kenny NP Performing Location: [facility] Administered by: Naima Warren RN on 12/04/23 13:35 Dose Route Admin Location Dispensed Lot Number Expiration Date [facility] Supervisor White Sugar 300 mg subcut LLQ 1.5 mL [id number] 12/27/24 [address]-3 [employer]. Comments: Pt tolerated injection well, no concerns or questions regarding this or previous injection. Pt educated on signs/symptoms of infection and encouraged to call [facility] with any questions or concerns, Pt verbalized understanding. Coding Assessment & Plan Assessment & Plan Orders: Orders AMB Buprenorphine Injection - Patient Supplied Today F11.90 - Opioid use, unspecified, uncomplicated
[2023-12-04 13:00] VITALS: BP 118/78; PULSE 86; O2SAT 96
== END 2023-12-04 13:50 | disposition home or self-care (01) ==
DX: F11.90 Opioid use, unspecified, uncomplicated (principal)

== ENCOUNTER → 2023-12-04 12:53 | Outpatient (BNVA) | payer MEDICAID, SELFPAY | DX: F11.20 Opioid dependence, uncomplicated (principal) | CPT/HCPCS: 96372; Q9992 ==

== ENCOUNTER 2023-12-31 13:05 | Outpatient (AMB) | payer MEDICAID, SELFPAY ==
[2023-12-31 13:14] VITALS: BP 134/78; PULSE 94; O2SAT 95
--- NOTE | 2023-12-31 13:14 | MHC.AM.SUB ---
Intake Vital Signs 12/31/23 13:14 BP 134/78 Blood Pressure Location Lt radial Position Sitting Pulse 94 Pulse Source Pulse Oximeter Pulse Oximetry (%) 95 Oxygen Delivery Method Room Air Intake Visit Reasons: sub inj Intake Note: the patient presents for a sub inj Director Of Neighborhood Service Center Required: No Allergies bupropion [From WELLBUTRIN] Allergy (Unknown, Unverified 06/15/20 16:08) anxiety pollen Allergy (Unknown, Uncoded 02/28/14 00:00) Do you need a note to return to daycare/school/sports/work: No PFSH Social History Substance Use Type: Opiates Coding
--- NOTE | 2023-12-31 13:18 | AM.OFFVISNUR ---
Intake Vital Signs 12/31/23 13:14 BP 134/78 Blood Pressure Location Lt radial Position Sitting Pulse 94 Pulse Source Pulse Oximeter Pulse Oximetry (%) 95 Oxygen Delivery Method Room Air Intake Visit Reasons: sub inj Allergies bupropion [From WELLBUTRIN] Allergy (Unknown, Unverified 06/15/20 16:08) anxiety pollen Allergy (Unknown, Uncoded 02/28/14 00:00) Nursing Note Pt in for injection today, he is alert and oriented x4, stated he had body aches and a hard time sleeping about 3 1/2 weeks after the shot, and took his left over suboxone scripts which he stated made him feel better. He will see Radha LEWIS next visit for a check in regarding 300mg adn 100mg dosing as he states he thinks the 100mg is not enough. Office Meds Sublocade 100 mg/0.5 mL solution,extended release subcutaneous syringe Performing Provider: Valentina Bruno CNP Performing Location: [facility] Administered by: Grace Sparrow RN on 12/31/23 13:20 Dose Route Admin Location Dispensed Lot Number Expiration Date [facility] Butter Printer 100 mg subcut RLQ 0.5 mL [id number] 07/30/24 [id number] [employer]. Coding Assessment & Plan Assessment & Plan Orders: Orders AMB Buprenorphine Injection - Patient Supplied Today F11.90 - Opioid use, unspecified, uncomplicated
== END 2023-12-31 13:31 | disposition home or self-care (01) ==
DX: F11.90 Opioid use, unspecified, uncomplicated (principal)

== ENCOUNTER → 2023-12-31 13:05 | Outpatient (BNVA) | payer MEDICAID, SELFPAY | DX: F11.20 Opioid dependence, uncomplicated (principal) | CPT/HCPCS: 96372; Q9992 ==

== ENCOUNTER 2024-01-28 12:59 | Outpatient (AMB) | payer MEDICAID, SELFPAY ==
--- NOTE | 2024-01-28 13:00 | A.OFFVISCC_ITS ---
Vital Signs 01/28/24 13:02 BP 128/94 H Blood Pressure Location Lt brachial Position Sitting Pulse 94 Pulse Source Pulse Oximeter Pulse Oximetry (%) 97 Oxygen Delivery Method Room Air Intake Visit Reasons: MAT visit/ sub inj Allergies bupropion [From WELLBUTRIN] Allergy (Unknown, Unverified 06/15/20 16:08) anxiety pollen Allergy (Unknown, Uncoded 02/28/14 00:00) HPI HPI MAT visit/ sub inj: Details: Patient presents for monthly injection Last month his injection dose changed to 100mg, and he was unable to tolerate it well Reports he had breakthrough withdrawal symptoms (sweats, body aches, yawning) states he feels as though he gets all the symptoms He had good relief with the bridge script sent, states he was ultimately able to split an 8mg to take 4mg BID with no breakthrough symptoms or cravings PFSH Social History Substance Use Type: Opiates Review of Systems Const Reports as per HPI Physical Exam Vital Signs: Last Vital Signs Pulse 94 01/28/24 13:02 BP 128/94 H 01/28/24 13:02 Pulse Ox 97 01/28/24 13:02 Oxygen Delivery Method Room Air 01/28/24 13:02 Const General: cooperative and no acute distress Resp Effort & Inspection: normal respiratory effort and able to speak in complete sentences Psych Appearance: disheveled Mental Status: mental status grossly normal Speech and movement: Normal speech and movement present Affect: Blunted affect present Attitude: cooperative Thought process: Normal thought process present Office Meds Sublocade 100 mg/0.5 mL solution,extended release subcutaneous syringe Performing Provider: Radha Kenny NP Performing Location: [facility] Administered by: Grace Sparrow RN on 01/28/24 13:09 Dose Route Admin Location Dispensed Lot Number Expiration Date [facility] Supervisor Operations 100 mg subcut 0.5 mL [id number] 11/27/24 [address]-8 [employer]. Assessment & Plan Assessment & Plan (1) Opioid use disorder: Code(s): F11.90 - Opioid use, unspecified, uncomplicated Category: Medical Plan: -Mass pat reviewed -DIscussed with patient sending in script for suboxone 8mg/day to address breakthrough withdrawal symptoms with this month's dose of 100mg injection -Patient is to think about if he would like to resume the 300mg Orders: Orders AMB Buprenorphine Injection - Patient Supplied 01/28/24 F11.90 - Opioid use, unspecified, uncomplicated Medications: Changed From buprenorphine-naloxone 8-2 mg (Suboxone) 1 film sublingual BID 18 ea 0RF To buprenorphine-naloxone 8-2 mg (Suboxone) 1 film sublingual ONCE 30 ea 0RF Refilled buprenorphine-naloxone 8-2 mg (Suboxone) 1 film sublingual ONCE 30 ea 0RF
[2024-01-28 13:02] VITALS: BP 128/94; PULSE 94; O2SAT 97
== END 2024-01-28 13:35 | disposition home or self-care (01) ==
PROVIDERS: Visit Provider Nurse Practitioner Family
DX: F11.90 Opioid use, unspecified, uncomplicated (principal)
CPT/HCPCS: 99213

== ENCOUNTER → 2024-01-28 12:59 | Outpatient (BNVA) | payer MEDICAID, SELFPAY | PROVIDERS: Visit Provider Nurse Practitioner Family | DX: F11.20 Opioid dependence, uncomplicated (principal); Z79.899 Other long term (current) drug therapy; Z51.81 Encounter for therapeutic drug level monitoring | CPT/HCPCS: 96372; 99212; Q9992 ==

== ENCOUNTER 2024-10-25 06:33 | Emergency (ER) | payer MEDICAID, SELFPAY ==
[2024-10-25 06:38] VITALS: BP 146/97; PULSE 81; RESP 18; TEMP 37; O2SAT 98; BMI 28.7
== END 2024-10-25 14:02 | disposition left against medical advice (07) ==
PROVIDERS: Emergency Provider Emergency Medicine
DX: K04.7 Periapical abscess without sinus (principal); Z53.21 Procedure and treatment not carried out due to patient leaving prior to being seen by health care provider
CPT/HCPCS: 99281

== ENCOUNTER 2024-10-26 03:37 | Emergency (ER) | payer MEDICAID, SELFPAY ==
[2024-10-26 03:52] VITALS: BP 164/95; PULSE 71; RESP 18; TEMP 36.8; O2SAT 99; BMI 28.7
[2024-10-26 04:52] VITALS: BP 152/99; PULSE 66; RESP 16; TEMP 36.7; O2SAT 98
--- NOTE | 2024-10-26 05:07 | ED.DENTAL ---
HPI - Dental/Oral General Chief complaint: Dental/Oral Stated complaint: tooth infection Time Seen by Provider: 10/26/24 04:53 Source: patient Mode of arrival: ambulatory Limitations: no limitations History of Present Illness ED Provider: DR. Howard HPI Narrative: 34-year-old male came in for evaluation of dental pain no relief after he took ibuprofen. Right lower 3rd molar tooth. MD Complaint: tooth pain Related Data Previous Rx's ?Medication ?Instructions ?Recorded ondansetron 4 mg disintegrating 4 mg PO Q6H PRN nausea and 10/18/23 tablet vomiting #20 tabs tizanidine 2 mg capsule 2 mg PO TID PRN muscle spasticity 10/18/23 #10 caps buprenorphine 100 mg/0.5 mL 100 mg (0.5 mL) subcut ONCE #0.5 mL 11/25/23 solution,exten.rel.subcutaneous syringe (Sublocade) buprenorphine 300 mg/1.5 mL 300 mg (1.5 mL) subcut ONCE #1.5 mL 01/21/24 solution,exten.rel.subcutaneous syringe (Sublocade) buprenorphine 8 mg-naloxone 2 mg 1 film sublingual ONCE #10 ea 03/09/24 sublingual film (Suboxone) amoxicillin 500 mg tablet 500 mg PO BID #14 tabs 10/26/24 Allergies Allergy/AdvReac Type Severity Reaction Status Date / Time bupropion [From WELLBUTRIN] Allergy Unknown anxiety Verified 10/26/24 03:57 pollen Allergy Unknown Unknown Uncoded 10/25/24 06:38 Review of Systems Review of Systems: All other systems are reviewed and are negative Constitutional: Reports as per HPI and Reports no additional constitutional complaints Eyes: Reports as per HPI and Reports no additional eye complaints Reports system reviewed and no additional complaints, except as documented Cardiovascular: Reports as per HPI and Reports no additional cardiovascular complaints Respiratory: Reports as per HPI and Reports no additional respiratory complaints Gastrointestinal: Reports as per HPI and Reports no additional gastrointestinal complaints Genitourinary: Reports no additional female genitourinary complaints Musculoskeletal: Reports no additional musculoskeletal complaints Skin/Breast: Reports system reviewed and no additional complaints, except as docu Psychiatric: Reports no additional psychiatric complaints Endocrine: Reports no additional endocrine complaints Hematologic/Lymphatic: Reports no additional hematologic/lymphatic complaints Allergic/Immunologic: Reports no additional allergic/immunologic complaints Reports system reviewed and no additional complaints, except as documented and Reports Abnormal speech present PMFSH Social History Social History Smoked in Last 30 Days: Yes Use of substances other than those prescribed or required for medical reasons: No Substance Use Type: Opiates Advance Directives: No Advance Directives Information Provided: Yes Do you have a plan to hurt others: No Plan Physical Exam Vital Signs: Vital Signs: Last Vital Signs Temp 98.1 F 10/26/24 04:52 Pulse 66 10/26/24 04:52 Resp 16 10/26/24 04:52 BP 152/99 H 10/26/24 04:52 Pulse Ox 98 10/26/24 04:52 O2 Del Method Room Air 10/26/24 04:52 BMI result Body Mass Index 28.7 Vital signs have been reviewed and appear to be correct. Blood pressure elevated. Heart rate normal. Respiratory rate normal. Temperature normal. Oxygen saturation normal. Appearance: Alert. Oriented X3. No acute distress. Mouth and dental exam: Tenderness and decay around the right lower 3rd molar tooth with gum tenderness, no fluctuation, no abscesses appreciated Head: Normal external exam. Normocephalic. Atraumatic. No Chapa signs noted. No raccoon eyes noted Eyes: PERRLA. EOMI. Conjunctiva and sclera normal. Eyelids normal. ENT: TM's Normal. Pharynx normal. Uvula midline. Moist mucous membranes. No trismus noted. No drooling noted. No muffled voice noted. Neck: Normal inspection. Neck supple. FROM. No adenopathy. Thyroid Normal. No meningeal signs. No neck mass noted. CVS: Normal heart rate and rhythm. Heart sound normal. No murmurs noted. Pulses normal throughout. Respiratory: No respiratory distress. Painless inspiration. Breath sounds normal. No wheezes/rales/rhonchi noted. Chest nontender. No accessory muscle usage noted or decreased air movement noted. Abdomen: Soft and nontender. Bowel sounds normal in all 4 quadrants. No distention noted. No organomegaly noted. No visible injury noted. Back: No CVA tenderness. Full range of motion noted. Skin: Skin warm and dry. Normal skin color. Normal skin turgor. No rashes/lesions/lacerations noted. Extremities: No lower extremity edema. Extremities exhibit normal range of motion. Extremities nontender. Neuro: Oriented X 3. Cranial nerve exam: II-XII are grossly intact No motor deficit. No sensory deficit. Reflexes normal. Course Reevaluation(s) Reevaluation #1: Dental pain and infection start on amoxicillin give 1 dose of oxycodone in the ED of with his dentist. Time: 05:09 Medical Decision Making Differential Diagnosis Differential Diagnoses: The differential diagnosis associated with the presentation includes (Dental decay, dental infection, dental abscess.) Admission/Observation Consideration of admission/observation: Escalation of care including admission/observation considered Discharge Plan Discharge Clinical Impression: Toothache Patient Disposition: Home, Self-Care Instructions: Toothache (ED) Additional Instructions: See your dentist DOV. Prescriptions: New amoxicillin 500 mg tablet 500 mg PO BID Qty: 14 0RF No Action Sublocade 100 mg/0.5 mL solution, extended rel syringe 100 mg subcut ONCE Qty: 0.5 5RF Sublocade 300 mg/1.5 mL solution, extended rel syringe 300 mg subcut ONCE Qty: 1.5 5RF buprenorphine-naloxone [Suboxone] 8-2 mg film 1 film sublingual ONCE Qty: 10 0RF ondansetron 4 mg tablet,disintegrating 4 mg PO Q6H PRN (Reason: nausea and vomiting) Qty: 20 0RF tizanidine 2 mg capsule 2 mg PO TID PRN (Reason: muscle spasticity) Qty: 10 0RF Print Language: Angolan
[2024-10-26] MEDS: Amoxicillin 500 MG CAPSULE PO (05:21)
[2024-10-26] MEDS: oxyCODONE HCl Immed Release 5 MG TABLET PO (05:21)
[2024-10-26 05:22] VITALS: BP 152/99; PULSE 66; RESP 16; TEMP 36.7; O2SAT 98
== END 2024-10-26 05:23 | disposition home or self-care (01) ==
PROVIDERS: Emergency Provider Emergency Medicine
DX: K04.7 Periapical abscess without sinus (principal); K08.89 Other specified disorders of teeth and supporting structures
CPT/HCPCS: 99283; 99284

== ENCOUNTER 2025-06-16 09:20 | Outpatient (REF) | payer MEDICAID, SELFPAY ==
--- OUTSIDE RECORDS SUMMARY | 2025-06-14 13:30 | XMS_ITS | Encounter Summary ---
Author Organization [email or web address] Address [address] [facility] [address] [place] [address] Care Team Providers Care Food And Drug Inspector Name Role Phone Jatin Hardy MD Primary Care Provide r Reason for Visit * Reason Comments Establish Care Encounter Details Date Type Department Care Team (Late st Contact Info) Description 06/14/2025 1:30 PM EDT Office Visit [facility] [address], [place] [id number] Jatin Hardy MD [address] [place] [address] Other viral warts (Primary Dx); Bipolar 2 disorder, major depressive episode (CMS/HCC); Overweight (BMI 25.0-29.9); Dietary counseling; Exercise counseling Social History Tobacco Use Types Packs/Day Years Used Date Smoking Tobacco: Every Day Cigarettes 1 13.7 Started: 2011 Passive Smoke Exposure: Never Smokeless Tobacco: Never Tobacco Cessation:Ready to Q uit: Not Asked; Counseling Given: Not Answered Alcohol Use Standard Drinks/Week Comments Not Currently 0 (1 standard drink = 0.6 oz pur e alcohol) Depression Answer Date Recorded Patient Health Questionnaire-9 Score 22 06/14/2025 Patient Health Questionnaire-9 Score 22 06/14/2025 Last PHQ-9: Questionnaire Data Not on file 0 06/14/2025 Housing Stability Answer Date Recorded What is your housing situation today? I have mer[place] mason 06/06/[address] you li ve. Do you have problems with any of the following? None of the above 06/06/2025 Food Insecurity Answer Date Recorded Within the past 12 months, y ou worried that your food would run out before you got money to buy more: Often true 06/06/2025 Within the past 12 months,th e food you bought just didn't last and you didn't have enough money to get more: Often true 04/2025 Transportation Answer Date Recorded In the past 12 months, has l ack of transportation kept you from medical appts, meetings, work or from getting things needed for daily living? No 06/06/2025 Utilities Answer Date Recorded In the past 12 months, has t he electric, gas, oil or water company threatened to shut off services in your home? No 06/06/2025 Depression Answer Date Recorded Patient Health Questionnaire-2 Score 6 06/14/2025 Internet Access Answer Date Recorded Internet Access Q1 Yes 06/06/2025 Internet Access Q2 Not on file 06/06/2025 Sex and Gender Information Value Date Recorded Sex Assigned at Male 03/25/2025 4:05 PM EDT Legal Sex Male 1:41 PM EST Gender Identity Male 06/13/2025 10:58 AM EDT Sexual Orientation Straight 06/13/2025 10 :58 AM EDT documented as of this encounter Last Filed Vital Signs Vital Sign Reading Time Taken Comments Blood Pressure 112/72 06/14/2025 1:21 PM EDT Pulse 93 06/14/2025 1:21 PM EDT Temperature 36.3 C (97.3 F) 06/14/2025 1:21 PM EDT Respiratory Rate 20 06/14/2025 1:21 PM EDT Oxygen Saturation 97% 06/14/2025 1:21 PM EDT Inhaled Oxygen Concentration - - Weight 93.4 kg (206 lb) 06/14/2025 1:21 PM EDT Height 177.8 cm (5' 10 ) 06/14/2025 1:21 PM EDT Body Mass Index 29.56 06/14/2025 1:21 PM EDT documented in this encounter Functional Status * Over the past 2 weeks, how often have you been bothered by any of the following problems? Question Answer Date of Assessment Author Patient Health Questionnaire -2 Score 6 06/14/2025 2:05 PM EDT Jaylyn Seals MA * Little interest or pleasure in doing things Answer Date of Assessment Author Nearly every day 06/14/2025 2:05 PM EDT Jaylyn Seals MA * Feeling down, depressed, or hopeless Answer Date of Assessment Author Nearly every day 06/14/2025 2:05 PM SWAPNAT Jaylyn Seals MA * Trouble falling or staying asleep, or sleeping too much Answer Date of Assessment Author Nearly every day 06/14/2025 2:05 PM Jaylyn Estevez MA * Feeling tired or having little energy Answer Date of Assessment Author More than half the days 06/14/2025 2:05 PM EDT Jaylyn Lemus MA * Poor appetite or overeating Answer Date of Assessment Author More than half the days 06/14/2025 2:05 PM EDT Jaylyn Lemus MA * Feeling bad about yourself - or that you are a failure or have let yourself or your family down Answer Date of Assessment Author Nearly every day 06/14/2025 2:05 PM Jaylyn Estevez MA * Trouble concentrating on things, such as reading the newspaper or watching television Answer Date of Assessment Author Nearly every day 06/14/2025 2:05 PM SWAPNAT Jaylyn Seals MA * Moving or speaking so slowly that other people could have noticed? Or the opposite - being so fidgety or restless that you have been moving around a lot more than usual. Answer Date of Assessment Author Nearly every day 06/14/2025 2:05 PM Jaylyn Estevez MA * Thoughts that you would be better off or hurting yourself in some way Answer Date of Assessment Author Not at all 06/14/2025 2:05 PM Kylie Estevez MA * Patient Health Questionnaire-9 Score Answer Date of Assessment Author 22 06/14/2025 2:05 PM Kylie Estevez MA * How difficult have these problems made it for you to do your work, take care of things at home, or get along with other people? Answer Date of Assessment Author Extremely difficult 06/14/2025 2:05 PM Jaylyn Ramirez MA * Over the last 2 weeks, how often have you been bothered by any of the following problems? Question Answer Date of Assessment Author Feeling nervous, anxious, or on edge 3 06/14/2025 2:05 PM EDT Jaylyn Seals MA Not being able to stop or co ntrol worrying 3 06/14/2025 2:05 PM EDT Jaylyn Seals MA Worrying too much about diff erent things 3 06/14/2025 2:05 PM EDT Jaylyn Seals MA Trouble relaxing 3 06/14/2025 2:05 PM EDT Jaylyn Lemus MA Being so restless that it is hard to sit still 3 06/14/2025 2:05 PM EDT Jaylyn Seals MA Becoming easily annoyed or irritable 2 06/14/2025 2:05 PM EDT Jaylyn Seals MA Feeling afraid as if somethi ng awful might happen 3 06/14/2025 2:05 PM EDT Jaylyn Seals MA AMANDO-7 Total Score 20 06/14/2025 2:05 PM EDT Jaylyn Seals MA documented as of this encounter Progress Notes * Jatin Muller MD - 06/14/2025 1:30 PM EDT SUBJECTIVE Yadiel Sarah is a 34 y.o. male who presents for Establish Care. Yadiel Sarah, 34 years Plantar Warts - Multiple plantar warts present on hands and feet for an unspecified duration - Warts on feet reported as worse than those on hands - History of unsuccessful topical treatments - Excessive sweating of hands associated with anxiety - Frequent use of gloves due to tattoo and sweating - No prior surgical intervention for warts Non-healing Lesion - Persistent lesion present for approximately 2 years - Lesion described as repeatedly scabbing and failing to heal - History of burning a mole at the site prior to onset - Uncertain if lesion is a wart; patient unsure of diagnosis Bipolar Depression and Anxiety - History of bipolar depression and anxiety - Sweating of hands associated with anxiety - Current psychiatric medication regimen prescribed by [facility] - No history of prior surgeries - Denies current alcohol use except occasional minimal intake - Denies current sexual activity HPI Review of Systems Constitutional: Negative for fever. HENT: Negative for sore throat. Respiratory: Negative for cough and shortness of breath. Cardiovascular: Negative for chest pain. Gastrointestinal: Negative for abdominal pain. Neurological: Negative for headaches. Allergies[1] OBJECTIVE Vitals: 06/14/25 1321 BP: 112/72 BP Location: Left arm Patient Position: Sitting BP Cuff Size: Large adult Pulse: 93 Resp: 20 Temp: 97.3 ??F (36.3 ??C) TempSrc: Temporal SpO2: 97% Weight: 206 lb (93.4 kg) Height: 5' 10 (1.778 m) Physical Exam Vitals reviewed. Constitutional: Appearance: Normal appearance. HENT: Head: Normocephalic and atraumatic. Right Ear: External ear normal. Left Ear: External ear normal. Nose: Nose normal. Mouth/Throat: Mouth: Mucous membranes are moist. Eyes: Conjunctiva/sclera: Conjunctivae normal. Cardiovascular: Rate and Rhythm: Normal rate and regular rhythm. Pulmonary: Effort: Pulmonary effort is normal. Breath sounds: Normal breath sounds. Skin: General: Skin is warm. Comments: Multiple lesions on hands and a single round lesion right forearm and left side of face Neurological: Mental Status: He is alert. Mental status is at baseline. Assessment/Plan Problem List Items Addressed This Visit Other viral warts - Primary Verrucae present on hands and feet, refractory to topical treatments. Lesion of concern on hand with chronic non-healing and recurrent scabbing, possible sequelae of prior burn to mole. Differential includes viral wart and other dermatologic pathology. - Referral placed to dermatology for evaluation and cryotherapy of warts. Biopsy recommended for non-healing lesion. Advised to mention all lesions to relocation manager for comprehensive assessment. Relevant Orders HIV-1/2 Antigen and Antibodies, Fourth Generation, with Reflexes Hepatitis C Antibody with Reflex to HCV, RNA, Quantitative, Real-Time PCR Bipolar 2 disorder, major depressive episode (CMS/HCC) Diagnosis of bipolar disorder and anxiety confirmed, currently managed by psychiatrist. - Advised to inform psychiatrist of new primary care provider for care coordination. No changes to psychiatric management during this encounter. Under the care of Shu Sanches at [facility] On Abilify and Buspar Relevant Medications ARIPiprazole (Abilify) 10 MG tablet busPIRone (Buspar) 5 MG tablet Other Relevant Orders Comprehensive Metabolic Panel Lipid Panel, Standard TSH with Reflex to Free T4 CBC auto differential HIV-1/2 Antigen and Antibodies, Fourth Generation, with Reflexes Hepatitis C Antibody with Reflex to HCV, RNA, Quantitative, Real-Time PCR Overweight (BMI 25.0-29.9) Patient has been counseled and educated about diet and exercise. Personal goal of weight loss discussed Other Visit Diagnoses Dietary counseling Exercise counseling This note was drafted using Ambient (AI) technology. The patient/patient's guardian has been informed and has consented to the use of this technology: Yes No future appointments. [1] No Known Allergies documented in this encounter Miscellaneous Notes * Assessment & Plan Note - Jatin Muller MD - 06/14/2025 3:45 PM EDT Associated Problem(s): Overweight (BMI 25.0-29.9) Patient has been counseled and educated about diet and exercise. Personal goal of weight loss discussed * Assessment & Plan Note - Jatin Muller MD - 06/14/2025 1:56 PM EDT Associated Problem(s): Other viral warts Verrucae present on hands and feet, refractory to topical treatments. Lesion of concern on hand with chronic non-healing and recurrent scabbing, possible sequelae of prior burn to mole. Differential includes viral wart and other dermatologic pathology. - Referral placed to dermatology for evaluation and cryotherapy of warts. Biopsy recommended for non-healing lesion. Advised to mention all lesions to relocation manager for comprehensive assessment. * Assessment & Plan Note - Jatin Muller MD - 06/14/2025 1:53 PM EDT Associated Problem(s): Bipolar 2 disorder, major depressive episode (CMS/HCC) Diagnosis of bipolar disorder and anxiety confirmed, currently managed by psychiatrist. - Advised to inform psychiatrist of new primary care provider for care coordination. No changes to psychiatric management during this encounter. Under the care of Shu Sanches at [facility] On [place] documented in this encounter Plan of Treatment Pending Results Name Type Priority Associated Diagnoses Date /Time Comprehensive Metabolic Panel Lab Routine Bipolar 2 disorder, major depressive episode (CMS/HCC) 06/16/2025 9:38 AM EDT Lipid Panel, Standard Lab Routine Bipolar 2 disorder, major depressive episode (CMS/HCC) 06/16/2025 9:38 AM EDT Scheduled Orders Name Type Priority Associated Diagnoses Orde r Schedule TSH with Reflex to Free T4 Lab Routine Bipolar 2 disorder, major depressive episode (CMS/HCC) Ordered: 06/14/2025 HIV-1/2 Antigen and Antibodies, Fourth Generation, with Reflexes Lab Routine Other viral warts Bipolar 2 disorder, major depressive episode (CMS/HCC) Expected: 06/14/2025 (Approximate), Expires: 06/14/2026 Hepatitis C Antibody with Reflex to HCV, RNA, Quantitative, Real-Time PCR Lab Routine Other viral warts Bipolar 2 disorder, major depressive episode (CMS/HCC) Expected: 06/14/2025 (Approximate), Expires: 06/14/2026 documented as of this encounter Procedures Procedure Name Priority Date/Time Associated Diagnosis Comments CBC WITH AUTO DIFFERENTIAL Routine 06/16/2025 9:38 AM EDT Bipolar 2 disorder, major depressive episode (CMS/HCC) LIPID PANEL, STANDARD Routine 06/16/2025 9:38 AM EDT Bipolar 2 disorder, major depressive episode (CMS/HCC) COMPREHENSIVE METABOLIC PANEL Routine 06/16/2025 9:38 AM EDT Bipolar 2 disorder, major depressive episode (CMS/HCC) documented in this encounter Results * (ABNORMAL) CBC auto differential (06/16/2025 9:38 AM EDT) White Blood Count 7.1 4.8 - 10.8 X10*3/uL [facility] Red Blood Count 5.34 4.60 - 5.80 X10*6/uL [facility] Hemoglobin 16.8 14.0 - 18.0 g/dl [facility] Hematocrit 48.6 42.0 - 52.0 % [facility] Mean Corpuscular Volume 91.0 80.0 - 98.0 fL [facility] Mean Corpuscular Hemoglobin 31.5 27.0 - 33.0 pg [facility] Mean Corpuscular HGB Conc 34.6 31.0 - 36.0 g/dl [facility] Red Cell Distribution Width 12.7 11.0 - 16.0 % [facility] Platelet Count 272 160 - 400 X10*3/uL [facility] Mean Platelet Volume 8.9(L) 9.4 - 12.4 fL [facility] Neutrophils Percent Auto 45.9 45 - 73 % [facility] Imm Gran Pct Auto 0.3 0.0 - 0.4 % [facility] Lymphocytes Percent Auto 40.6(H) 20 - 40 % [facility] Monocytes Percent Auto 9.9 2 - 11 % [facility] Eosinophils Percent Auto 2.5 0 - 4 % [facility] Basophils Percent Auto 0.8 0 - 2 % [facility] NRBC Pct Auto 0.0 0.0 - 0.2 /100WBC [facility] Neutrophils Absolute Auto 3.3 2.0 - 8.3 x10*3/uL [facility] Imm Gran Abs Auto 0.02 0.00 - 0.03 X10*3/uL [facility] Lymphocytes Absolute Auto 2.9 1.2 - 4.9 X10*3/uL [facility] Monocytes Absolute Auto 0.7 0.1 - 1.2 X10*3/uL [facility] Eosinophils Absolute Auto 0.2 0.0 - 0.4 X10*3/uL [facility] Basophils Absolute Auto 0.1 0.0 - 0.2 X10*3/uL [facility] NRBC Abs Auto 0.000 0.0 - 0.012 X10*3/uL [facility] Blood Venous blood specimen / Unknown 06/16/2025 9:38 AM EDT 06/16/2025 9:38 AM EDT us Jatin Muller MD LAB BLOOD ORDERABLES Final Result [facility] [address] [place] [address] [phone] documented in this encounter Visit Diagnoses Diagnosis Other viral warts- Primary Bipolar 2 disorder, major depressive episode (CMS/HCC) Overweight (BMI 25.0-29.9) Overweight Dietary counseling Dietary surveillance and counseling Exercise counseling documented in this encounter Additional Health Concerns Assessment Noted Time PHQ-9 Depression Total Score: 22 025 2:05 PM EDT documented as of this encounter Care Teams Food And Drug Inspector Relationship Specialty Start Date End Date Jatin Hardy MD [address] [place] [id number] PCP - General Internal Medicine 06/14/25 documented as of this encounter
[2025-06-16 09:40] LABS: MANUAL DIFF FLAG NO
[2025-06-16 09:57] LABS: Hematocrit 48.6 % (42.0-52.0); Hemoglobin 16.8 g/dl (14.0-18.0); Imm Gran Abs Auto 0.02 X10*3/uL (0.00-0.03); Imm Gran Pct Auto 0.3 % (0.0-0.4); Lymphocytes Absolute Auto 2.9 X10*3/uL (1.2-4.9); Mean Corpuscular HGB Conc 34.6 g/dl (31.0-36.0); Mean Corpuscular Hemoglobin 31.5 pg (27.0-33.0); Mean Corpuscular Volume 91.0 fL (80.0-98.0); NRBC Abs Auto 0.000 X10*3/uL (0.0-0.012); NRBC Pct Auto 0.0 /100WBC (0.0-0.2); Platelet Count 272 X10*3/uL (160-400); Red Blood Count 5.34 X10*6/uL (4.60-5.80); White Blood Count 7.1 X10*3/uL (4.8-10.8)
[2025-06-16 10:40] LABS: Alanine Aminotransferase 27 U/L (0-40); Albumin Level 4.7 g/dL (3.5-5.0); Alkaline Phosphatase 69 U/L (39-117); Anion Gap 9 (12-20); Aspartate Amino Transferase 20 U/L (5-37); Blood Urea Nitrogen 8 mg/dL (9-16); Calcium 9.0 mg/dL (8.4-10.2); Carbon Dioxide 28 mmol/L (22-29); Chloride 108 mmol/L (96-108); Cholesterol 236 mg/dL (<200); Estimated Glomerular Filt Rate > 60; HDL Cholesterol 31 mg/dL (>40); Potassium 4.5 mmol/L (3.3-5.1); Sodium 140 mmol/L (135-145); Total Protein 7.0 g/dL (6.5-8.0); Triglycerides 342 mg/dL (<150)
[2025-06-16 10:51] LABS: HIV Num 1 0.05 S/CO (0.00-0.99); ~HepC Num1 0.09 S/CO (0.00-0.79); ~Hepatitis C Antibody Nonreactive (Nonreactive)
--- OUTSIDE RECORDS SUMMARY | 2025-06-16 10:52 | XMS_ITS | Encounter Summary ---
Author Organization [employer] Address [address] [place] [address] Care Team Providers Care Preventative Maintenance Technician Name Role Phone Jatin Hardy MD Primary Care Provide r Encounter Details Date Type Department Care Team (Latest Contact Info) Description 06/14/2025 Travel Social History Tobacco Use Types Packs/Day Years Used Date Smoking Tobacco: Every Day Cigarettes 1 13.7 Started: 2011 Passive Smoke Exposure: Never Smokeless Tobacco: Never Alcohol Use Standard Drinks/Week Comments Not Currently [...] AM EDT documented as of this encounter Functional Status * Over the [...] PM EDT Jaylyn Seals MA * Feeling tired or having little [...] PM SWAPNAT Jaylyn Seals MA * Trouble concentrating on things, such as reading the newspaper or watching television Answer Date of Assessment Author Nearly every day 06/14/2025 2:05 PM EDT Jaylyn Seals MA * Moving or speaking so slowly that other people could have noticed? Or the opposite - being so fidgety or restless that you have been moving around a lot more than usual. Answer Date of Assessment Author Nearly every day 06/14/2025 2:05 PM EDT Jaylyn Seals MA * Thoughts that you would be better off or hurting yourself in some way Answer Date of Assessment Author Not at all 06/14/2025 2:05 PM EDT Kylie Seals MA * Patient Health Questionnaire-9 Score Answer Date of Assessment Author 22 06/14/2025 2:05 PM EDT Kylie Seals MA * How difficult have these problems made it for you to do your work, take care of things at home, or get along with other people? Answer Date of Assessment Author Extremely difficult 06/14/2025 2:05 PM EDT Jaylyn Jasso MA * Over the last 2 weeks, [...] Seals MA documented as of this encounter Plan of Treatment Not on file documented as of this encounter Visit Diagnoses Not on filedocumented in this encounter Additional Health Concerns Assessment Noted Time PHQ-9 Depression Total Score: 025 2:05 PM EDT documented as of this encounter Care Teams Preventative Maintenance Technician Relationship Specialty Start Date End Date Jatin Hardy MD [address] [place] [id number] PCP - General Internal Medicine 06/14/25 documented as of this encounter
--- OUTSIDE RECORDS SUMMARY | 2025-06-16 10:52 | XMS_ITS | Clinical Summary ---
Author Organization [employer] Address [address] [place] [address] Care Team Providers Care Drill Setup Operator Name Role Phone Jatin Hardy MD Primary Care Provide r Allergies No known active allergies Medications ARIPiprazole (Abilify) 10 MG tablet Take 10 mg by mouth at bedtime. 04/30/2025 Active busPIRone (Buspar) 5 MG tablet Take 5 mg by mouth 3 times daily. 05/19/2025 Active Active Problems Problem Noted Date Diagnosed Date Other viral warts 06/14/2025 Assessment & Plan (06/14/2025 3:48 PM EDT): Verrucae present on hands and feet, refractory to topical treatments. Lesion of concern on hand with chronic non-healing and recurrent scabbing, possible sequelae of prior burn to mole. Differential includes viral wart and other dermatologic pathology. - Referral placed to dermatology for evaluation and cryotherapy of warts. Biopsy recommended for non-healing lesion. Advised to mention all lesions to loss prevention consultant for comprehensive assessment. Overweight (BMI 25.0-29.9) 06/14/2025 Assessment & Plan (06/14/2025 3:45 PM EDT): Patient has been counseled and educated about diet and exercise. Personal goal of weight loss discussed Bipolar 2 disorder, major depressive episode Assessment & Plan (06/14/2025 3:47 PM EDT): Diagnosis of bipolar disorder and anxiety confirmed, currently managed by psychiatrist. - Advised to inform psychiatrist of new primary care provider for care coordination. No changes to psychiatric management during this encounter. Under the care of Shu Sanches at [facility] On Abilify and Buspar Encounters Date Type Department Care Team Description 06/14/2025 1:30 PM EDT Office Visit [facility] [address] [place] [phone] Jatin Hardy MD Other viral warts (Primary Dx); Bipolar 2 disorder, major depressive episode (CMS/HCC); Overweight (BMI 25.0-29.9); Dietary counseling; Exercise counseling 06/14/2025 Patient Outreach [facility] [address] [place] [address] Jatin Hardy MD Care Coordination (CHW outreach for SDOH housing search-referral completed ) 06/14/2025 Travel 06/13/2025 Telephone [facility] [address] [place] [address] Jaylyn Seals MA chart prep 06/06/2025 Patient Outreach [address] [phone] Jatin Hardy MD Pre-visit Planning (SDOH Screening positive and Tobacco screening positive) 03/25/[address] [address] Jatin Hardy MD new patient visit from Last 3 Months Family History Medical History Relation Name Comments Throat cancer Father Relation Name Status Comments Father Social History Tobacco Use Types Packs/Day Years [...] the past 12 months, has t he Interview, gas, oil or water company threatened to [...] Orientation Straight 06/13/2025 10 :58 AM EDT Last Filed Vital Signs Vital Sign Reading [...] Mass Index 29.56 06/14/2025 1:21 PM EDT Plan of Treatment Health Maintenance Due Date Last Done Comments HIV Screening 1988 Lipid Panel 1988 06/16/2025 Family Planning (PISQ) 2003 HPV Vaccines (1 - Male 3-dos e series) 2003 Hepatitis C Screening 2006 DTaP/Tdap/Td Vaccines (1 - Tdap) 2007 Hepatitis B Vaccines (1 of 3 - 19+ 3-dose series) 2007 Pneumococcal Vaccine: Pediatrics (0 to 5 Years) and At-Risk Patients (6 to 49) Years (1 of 2 - PCV) 2007 COVID-19 Vaccine (1 - 2023-2 5 season) 2025 Influenza Vaccine (#1) 2025 Depression Monitoring 12/12/2025 06/14/2025 , 06/14/2025 Alcohol/Substance Use Screening 06/14/2026 06/14/2025 Disability Screening 06/14/2026 06/14/2025 SDOH Screening 06/14/2026 06/14/2025 Tobacco Screening 06/14/2026 06/14/2025 Zoster Vaccines (1 of 2) 2038 RSV Patients and Patients Aged 60 years or older (1 - 1-dose 75+ series) 2063 HIB Vaccines Aged Out No longer eligi ble based on patient's age to complete this topic Hepatitis A Vaccines Aged Out No long er eligible based on patient's age to complete this topic IPV Vaccines Aged Out No longer eligi ble based on patient's age to complete this topic Meningococcal B Vaccine Aged Out No l onger eligible based on patient's age to complete this topic Meningococcal Vaccine Aged Out No radha stephanie eligible based on patient's age to complete this topic RSV under 20 months Aged Out No longe r eligible based on patient's age to complete this topic Rotavirus Vaccines Aged Out No longer eligible based on patient's age to complete this topic Procedures Procedure Name Priority Date/Time Associated Diagnosis Comments CBC WITH AUTO DIFFERENTIAL Routine 06/16/2025 9:38 AM EDT Bipolar 2 disorder, major depressive episode (CMS/HCC) LIPID PANEL, STANDARD Routine 06/16/2025 9:38 AM EDT Bipolar 2 disorder, major depressive episode (CMS/HCC) COMPREHENSIVE METABOLIC PANEL Routine 06/16/2025 9:38 AM EDT Bipolar 2 disorder, major depressive episode (CMS/HCC) from Last 3 Months Results * (ABNORMAL) CBC auto differential (06/16/2025 9:38 AM EDT) White Blood Count 7.1 4.8 - 10.8 X10*3/uL [facility] Red Blood Count 5.34 4.60 - 5.80 X10*6/uL [facility] Hemoglobin 16.8 14.0 - 18.0 g/dl [facility] Hematocrit 48.6 42.0 - 52.0 % [facility] Mean Corpuscular Volume 91.0 80.0 - 98.0 fL [facility] Mean Corpuscular Hemoglobin 31.5 27.0 - 33.0 pg [facility] Mean Corpuscular HGB Conc 34.6 31.0 - 36.0 g/dl [facility] Red Cell Distribution Width 12.7 11.0 - 16.0 % [facility] Platelet Count 272 160 - 400 X10*3/uL [facility] Mean Platelet Volume 8.9(L) 9.4 - 12.4 fL [facility] Neutrophils Percent Auto 45.9 45 - 73 % [facility] Imm Gran Pct Auto 0.3 0.0 - 0.4 % [facility] Lymphocytes Percent Auto 40.6(H) 20 - 40 % [facility] Monocytes Percent Auto 9.9 2 - 11 % [facility] Eosinophils Percent Auto 2.5 0 - 4 % [facility] Basophils Percent Auto 0.8 0 - 2 % [facility] NRBC Pct Auto 0.0 0.0 - 0.2 /100WBC [facility] Neutrophils Absolute Auto 3.3 2.0 - 8.3 x10*3/uL [facility] Imm Gran Abs Auto 0.02 0.00 - 0.03 X10*3/uL [facility] Lymphocytes Absolute Auto 2.9 1.2 - 4.9 X10*3/uL [facility] Monocytes Absolute Auto 0.7 0.1 - 1.2 X10*3/uL [facility] Eosinophils Absolute Auto 0.2 0.0 - 0.4 X10*3/uL [facility] Basophils Absolute Auto 0.1 0.0 - 0.2 X10*3/uL [facility] NRBC Abs Auto 0.000 0.0 - 0.012 X10*3/uL [facility] Blood Venous blood specimen / Unknown 06/16/2025 9:38 AM EDT 06/16/2025 9:38 AM EDT Jatin Muller MD LAB BLOOD ORDERABLES Final Result [facility] [address] [place] [address] [phone] from Last 3 Months Insurance [employer] Care Teams Drill Setup Operator Relationship Specialty Start Date End Date Jatin Hardy MD [address] [place] [address] PCP - General Internal Medicine 06/14/25
--- OUTSIDE RECORDS SUMMARY | 2025-06-16 10:52 | XMS_ITS | Encounter Summary ---
Author Organization [employer] Address [address] [place] [address] Care Team Providers Care School Psychology Specialist Name Role Phone Jatin Hardy MD Primary Care Provide r Reason for Visit * Reason Comments Care Coordination CHW outreach for SDO H housing search-referral completed Encounter Details Date Type Department Care Team (Latest Contact Info) Description 06/14/2025 Patient Outreach [facility] [address] [place] [address] Jatin Hardy MD [address] [place] [address] Care Coordination (CHW outreach for SDOH housing search-referral completed ) Social History Tobacco Use Types Packs/Day Years [...] AM EDT documented as of this encounter Progress Notes * Abebe Simon - 06/14/2025 1:47 PM EDT CHW Abebe Simon, placed outbound call to patient for assistance with SDOH as a referral was received by the provider. Patient's name and were confirmed. Patient screened positive for the following SDOH housing insecurities. Patient states is staying with her friend but is searching for her own apartment. CHW referral patient to the list of application mail out to her address on file. Patient verbalizes understanding, and able to agree with plan to follow up herself. Patient educated on extended clinic hours on Mondays through Wednesdays, and Walk-In Urgent Care Located in [facility]. Patient provided with after-hours line for [facility], , which offer night time triage service and option to transfer to distribution operations supervisor provider if needed. documented in this encounter Plan of Treatment Not on file documented as of this encounter Visit Diagnoses Not on filedocumented in this encounter Additional Health Concerns Assessment Noted Time PHQ-9 Depression Total Score: 22 025 2:05 PM EDT documented as of this encounter Care Teams School Psychology Specialist Relationship Specialty Start Date End Date Jatin Hardy MD [address] [place] [address] PCP - General Internal Medicine 06/14/25 documented as of this encounter
--- OUTSIDE RECORDS SUMMARY | 2025-06-16 10:52 | XMS_ITS | Encounter Summary ---
Author Organization [employer] Address [address] [facility] [address] [place] [address] Care Team Providers Care Babbitter Name Role Phone Unavailable Primary Care Provider Unavailabl e Reason for Visit * Reason Onset Date Comments chart prep 06/13/2025 Encounter Details Date Type Department Care Team (Late st Contact Info) Description 06/13/2025 Telephone [facility] [address] [place] [address] Jaylyn Seals MA chart prep Social History Tobacco Use Types Packs/Day Years Used Date Smoking Tobacco: Never Assessed Depression Answer Date Recorded Patient Health Questionnaire-9 [...] AM EDT documented as of this encounter Miscellaneous Notes * Telephone Encounter - Jaylyn Seals MA - 06/13/2025 1:21 PM EDT Chart Prep Labs: not applicable Images: not applicable Screenings: HIV screening Vaccines due: Covid Due, Tdap Due, Hep B Due, Flu Due, and HPV Referrals: Not Applicable Overdue care gaps: Sbirt, PHQ9, GAD7, Disability , and Oral Health documented in this encounter Plan of Treatment Not on file documented as of this encounter Visit Diagnoses Not on filedocumented in this encounter
== END 2025-06-16 09:21 | disposition home or self-care (01) ==
LOC: HO.LAB 09:20
PROVIDERS: Visit Provider Internal Medicine
DX: Z11.4 Encounter for screening for human immunodeficiency virus [HIV] (principal); Z11.59 Encounter for screening for other viral diseases; B07.8 Other viral warts; F31.81 Bipolar II disorder
CPT/HCPCS: 36415; 80053; 80061; 84443; 85025; 86803; 87389